=== PATIENT | female | born 1975 | race Caucasian/White ===

== ENCOUNTER 2016-06-17 16:06 | Emergency (ER) | payer BC, OTHER ==
[2016-06-17 16:19] VITALS: BP 135/92; PULSE 87; TEMP 98.7; BMI 30.9
--- NOTE | 2016-06-17 16:29 | PDOC ---
History of Present Illness - History of Present Illness Initial Comments: 06/17/16 16:57 The patient is a 41 year old female with a past medical hx of who presents to the ED complaining of a cough and SOB. The patient states she has had a cough for about 1.5 months, and has been experiencing SOB since this morning. She notes the cough was initially productive, but is now dry. She notes associated chest pain that she describes as a pressure and hollow. She notes the cough is exacerbated with inspiration. LMP 05/26/16. She denies being on control pills and recent travel. She reports a family hx of lung cancer. She was not born in this country, but states she attended school in the [place], therefore, she assumes she is fully vaccinated. She reports chills, but denies fever The patient denies nausea, vomiting, diarrhea The patient denies dysuria, frequency Social: Denies alcohol and tobacco use Allergies: NKDA Surgical: None reported <Ena Cool - Last Filed: 06/17/16 17:30> - General History Source: Patient Exam Limitations: No Limitations <Caro Mercado - Last Filed: 06/19/16 08:29> - General Chief Complaint: Respiratory Stated Complaint: CHEST DISCOMFORT/COUGH Time Seen by Provider: 06/17/16 16:10 Past History <Ena Cool - Last Filed: 06/17/16 17:30> - Past Medical History Thyroid Disease: Yes (HYPO) - Psycho/Social/Smoking Cessation Hx Anxiety: No Suicidal Ideation: No Smoking History: Never smoked Have you smoked in the past 12 months: No Information on smoking cessation initiated: No Hx Alcohol Use: No Drug/Substance Use Hx: No Substance Use Type: None <Caro Mercado - Last Filed: 06/19/16 08:29> - Past Medical History Allergies/Adverse Reactions: Allergies Allergy/AdvReac Type Severity Reaction Status Date / Time No Known Allergies Allergy Verified 06/17/16 16:24 Home Medications: Ambulatory Orders Albuterol 0.083% Nebulizer Rebekah [Ventolin 0.083% Nebulizer Soln -] 1 neb NEB Q6H PRN #30 vial 06/17/16 Azithromycin [Zithromax 250mg Tablets -] 250 mg PO UTDICT #6 tab 06/17/16 Guaifenesin/Codeine Phosphate [Guaifen-Codeine 100-10 mg/5 ml] 15 ml PO Q8H PRN #135 ml MDD 45ml 06/17/16 Levothyroxine Sodium [Synthroid] 88 mcg PO DAILY 06/17/16 Review of Systems - Review of Systems Able to Perform ROS?: Yes Comments:: 06/17/16 16:58 GENERAL/CONSTITUTIONAL: +Chills. No: fever, weakness, loss of appetite. HEAD, EYES, EARS, NOSE AND THROAT: No: change in vision, ear pain, discharge, sore throat, throat swelling. CARDIOVASCULAR: +Chest pain No:lightheadedness, palpitations, syncope RESPIRATORY: +Cough, shortness of breath. No:wheezing, hemoptysis, stridor. GASTROINTESTINAL: No: nausea, vomiting, abdominal cramping, diarrhea, rectal bleeding, constipation. GENITOURINARY: No: dysuria, hematuria, frequency, urgency, flank pain. MUSCULOSKELETAL: No: back pain, neck pain, joint pain, muscle swelling or pain SKIN: No: lesions, pallor, rash or easy bruising. NEUROLOGIC: No: headache, vertigo, paresthesias, weakness ENDOCRINE: No: unexplained weight gain or loss HEMATOLOGIC/LYMPHATIC: No: anemia, easy bleeding, swelling nodes <Ena Cool - Last Filed: 06/17/16 17:30> *Physical Exam - Vital Signs Last Vital Signs Temp Pulse Resp BP Pulse Ox 98.7 F 87 16 135/92 100 06/17/16 16:14 06/17/16 16:14 06/17/16 16:14 06/17/16 16:14 06/17/16 16:14 - Physical Exam Comments: 06/17/16 16:58 GENERAL: The patient is in no acute distress. HEAD: Normal with no signs of trauma. EYES: PERRLA, EOMI, sclera anicteric, conjunctiva clear. ENT: Ears normal, nares patent, oropharynx clear without exudates. Moist mucous membranes. NECK: Normal range of motion, supple without lymphadenopathy, JVD, or masses. LUNGS: Breath sounds equal, clear to auscultation bilaterally. No wheezes, and no crackles. HEART:Regular rate and rhythm, normal S1 and S2 without murmur, rub or gallop. ABDOMEN: Soft, nontender, normoactive bowel sounds. No guarding, no rebound. EXTREMITIES: Normal range of motion, no edema. No clubbing or cyanosis. No erythema, or tenderness. NEUROLOGICAL: Cranial nerves II through XII grossly intact. Normal speech. No focal neurological deficits. MUSCULOSKELETAL: Back nontender to palpation, no CVA tenderness SKIN: Warm, Dry, normal turgor, no rashes or lesions noted. <Ena Cool - Last Filed: 06/17/16 17:30> - Vital Signs Last Vital Signs Temp Pulse Resp BP Pulse Ox 98.7 F 87 16 135/92 100 06/17/16 16:14 06/17/16 16:14 06/17/16 16:14 06/17/16 16:14 06/17/16 16:14 <Caro Mercado - Last Filed: 06/19/16 08:29> ED Treatment Course - ADDITIONAL ORDERS Additional order review: Laboratory Results 06/17/16 16:30 Urine HCG, Qual Negative - RADIOLOGY Radiograph Interpretation: 06/17/16 17:27 Chest X-Ray Unremarkable examination without evidence of acute lung distress <Ena Cool - Last Filed: 06/17/16 17:30> - LABORATORY CBC & Chemistry Diagram: 06/17/16 17:27 06/17/16 17:52 <Caro Mercado - Last Filed: 06/19/16 08:29> Medical Decision Making - Medical Decision Making 06/17/16 16:29 A portion of this note was documented by scribe services under my direction. I have reviewed the details of the note, within reason, and agree with the documentation with the following case summary and management plan written by me. Nursing documentation reviewed and incorporated into medical decision making This is a 41 yo F with no significant past medical history presenting to the ER with a complaint of chest tightness and cough Pt states her symptoms began almost 2 months ago She briefly thought she got better but her cough returned No fevers or chills Pt states that she has chest pain, and describes it as a hollow feeling No radiation to the arm, jaw or back No associated nausea or diaphoresis No recent travel PERC negative No ACS risk factors, I think this is highly unlikely Will do: CXR basic labs EKG Nebs Re assess 06/17/16 18:29 Laboratory Tests 06/17/16 06/17/16 06/17/16 17:27 17:27 17:52 WBC 17.9 H Hgb 12.4 Hct 39.4 Plt Count 581 H Sodium 135 L Potassium 3.3 L Chloride 103 BUN 9 Random Glucose 98 Creatine Kinase 94 Troponin I < 0.03 L 06/17/16 18:30 06/17/16 18:31 CXR read as nml Unclear the cause of her leukocytosis Pt states that Dr. Esparza has told her of her possible risk of leukemia and has asked her to follow up She missed an appointment I have explained to her that I am concerned that her platelets, WBC are elevated ALSO, pt has a history of anemia (baseline Hgb 10) currently she is 12 ?hemoconcentration?? Pt has no urinary complaints Will: discharge to home Ask pt to follow up with Dr Isaias veras 1-2 days pt given copies of her results 06/17/16 18:43 Pt has neb machine at home Will give albuterol Will give Azithromycin <Caro Mercado - Last Filed: 06/19/16 08:29> *DC/Admit/Observation/Transfer - Attestations Scribe Attestion: 06/17/16 16:58 Documentation prepared by Ena Cool, acting as medical transcription for Caro Mercado MD/DO. <Ena Cool - Last Filed: 06/17/16 17:30> - Discharge Dispostion Admit: No <Caro Mercado - Last Filed: 06/19/16 08:29> Diagnosis at time of Disposition: Cough Leukocytosis Qualifiers: Leukocytosis type: unspecified Qualified Code(s): D72.829 - Elevated white blood cell count, unspecified - Discharge Dispostion Disposition: HOME Condition at time of disposition: Stable - Prescriptions Prescriptions: Guaifenesin/Codeine Phosphate [Guaifen-Codeine 100-10 mg/5 ml] 15 ml PO Q8H PRN #135 ml MDD 45ml PRN Reason: severe cough Albuterol 0.083% Nebulizer Rebekah [Ventolin 0.083% Nebulizer Soln -] 1 neb NEB Q6H PRN #30 vial PRN Reason: chest tightness Azithromycin [Zithromax 250mg Tablets -] 250 mg PO UTDICT #6 tab - Referrals Referrals: Andreea Esparza MD [Staff Physician] - - Patient Instructions Printed Discharge Instructions: DI for Cough -- Adult, DI for Leukocytosis Additional Instructions: Please follow up with Dr Esparza Monitor yourself for fevers or chills Rest and hydrate yourself Return to the ER for any other concerns complaints
[2016-06-17] MEDS ORDERED: ALBUTEROL SO4 0.083% IH SOL 2.5 MG/3 ML VIAL.NEB. NEB ONE ×2 (16:59→17:11)
[2016-06-17] MEDS ORDERED: IBUPROFEN 400 MG TABLET (FP) PO ONE ×2 (16:59→17:11)
[2016-06-17 17:38] LABS: BASOPHIL 1.2 % (0-2.0); MCH 22.3 pg (25.7-33.7); MCHC 31.5 g/dl (32.0-36.0); MEAN CELL VOLUME 70.8 fl (80-96); MEAN PLT VOLUME 8.9 fl (7.5-11.1); NEUTROPHILS 74.6 % (42.8-82.8); PLATELET COUNT 581 K/MM3 (134-434); RDW 14.9 % (11.6-15.6); WHITE BLOOD COUNT 17.9 K/mm3 (4.0-10.0)
[2016-06-17 18:15] LABS: CPK(DFH) 94 IU/L (26-140)
[2016-06-17 18:15] LABS: ALBUMIN 3.8 g/dl (3.5-5.0); ALK PHOS 76 U/L (32-92); ANION GAP 9 (8-16); BILIRUBIN,TOTAL 0.5 mg/dl (0.2-1.0); CALCIUM 9.1 mg/dl (8.4-10.2); CO2 23 mmol/L (22-28); CREATININE 0.8 mg/dl (0.6-1.3); GLUCOSE,RANDOM 98 mg/dl (74-106); SGOT/AST 26 U/L (10-42); SGPT/ALT 17 U/L (10-40); TOT PROT 7.9 g/dl (6.4-8.3)
[2016-06-17 18:17] LABS: TROPONIN I (DFP) < 0.03 ng/ml (0.03-0.50)
[2016-06-17 22:52] LABS: HYPOCHROMIA 1+; MICROCYTOSIS 1+
[2016-06-17 22:53] LABS: BURR CELLS 1+
--- NOTE | 2016-06-18 12:29 | EKG ---
Test Reason : Blood Pressure : / mmHG Vent. Rate : 082 BPM Atrial Rate : 082 BPM P-R Int : 162 ms QRS Dur : 084 ms QT Int : 404 ms P-R-T Axes : 022 039 024 degrees QTc Int : 472 ms NORMAL SINUS RHYTHM NORMAL ECG NO PREVIOUS ECGS AVAILABLE Confirmed by LAISHA VAIL MD ([id number]) on 06/18/2016 12:28:57 PM Referred By: MD JOLLY Confirmed By:LAISHA VAIL MD
== END 2016-06-17 19:01 | disposition home or self-care (01) ==
LOC: FER 16:06
PROC: 3E0F7GC Introduction of Other Therapeutic Substance into Respiratory Tract, Via Natural or Artificial Opening (ICD-10-PCS; principal; 2016-06-17)
DX: D72.829 Elevated white blood cell count, unspecified (principal); R05 Cough; E03.9 Hypothyroidism, unspecified
CPT/HCPCS: 36415; 71020-TC; 80053; 82550; 84484; 84703; 85025; 93005; 99283-25

== ENCOUNTER 2021-04-24 04:38 | Day surgery (SDC) | payer OTHER ==
[2021-04-22 17:59] VITALS: BMI 30.9
[2021-04-24] MEDS ORDERED: ceFAZolin SODIUM 1 GM VIAL IVPB ONE (10:30)
[2021-04-24] MEDS ORDERED: BUPIVACAINE HCL/PF 0.5% (5 MG/ML) 30 ML VIAL IJ ONE (10:31)
[2021-04-24] MEDS ORDERED: LIDOCAINE 1%/EPI 1:100000 (50 ML MULTI DOSE VIAL) INF ONE (10:31)
[2021-04-24] MEDS ORDERED: MICROFIBRILLAR COLLAGEN 1 GM EACH TP ONE (12:08)
[2021-04-24] MEDS ORDERED: oxyCODONE HCL 5 MG TABLET PO PRN (12:50)
[2021-04-24] MEDS ORDERED: ONDANSETRON 4 MG/2 ML VIAL IVPUSH PRN (12:50)
[2021-04-24] MEDS ORDERED: ACETAMINOPHEN 1000 MG/100 ML VIAL IVPB ONE ×2 (12:51→13:29)
[2021-04-24] MEDS ORDERED: HALOPERIDOL LACTATE 5 MG/ML IV ONE (12:59)
[2021-04-24] MEDS ORDERED: LACTATED RINGERS SOLUTION 1,000 ML IV SCH (13:00)
[2021-04-24] MEDS ORDERED: CALCIUM CARBONATE 650 MG TABLET PO ONE (14:00)
[2021-04-24] MEDS ORDERED: CALCITRIOL 0.25 MCG CAPSULE (FP) PO ONE (15:00)
[2021-04-24 16:11] VITALS: BP 134/78; PULSE 74; TEMP 97.1
[2021-04-24] MEDS ORDERED: ACETAMINOPHEN 500 MG TABLET (FP) PO SCH (19:00)
== END 2021-04-24 16:30 | disposition home or self-care (01) ==
LOC: JASU-SURG 04:38
PROVIDERS: ATTEND Surgery
PROC: 0GTH0ZZ Resection of Right Thyroid Gland Lobe, Open Approach (ICD-10-PCS; 2021-04-24)
PROC: 0GSP0ZZ Reposition Left Inferior Parathyroid Gland, Open Approach (ICD-10-PCS; 2021-04-24)
PROC: 0GTG0ZZ Resection of Left Thyroid Gland Lobe, Open Approach (ICD-10-PCS; principal; 2021-04-24 10:00)
DX: C73 Malignant neoplasm of thyroid gland (principal); I10 Essential (primary) hypertension; E11.9 Type 2 diabetes mellitus without complications; Z79.84 Long term (current) use of oral hypoglycemic drugs
CPT/HCPCS: 82962; 88305-TC; 88307-TC; 88331-TC; 94760; J0131